=== PATIENT | male | born 1965 | race Caucasian/White ===

== ENCOUNTER 2022-07-18 19:50 | Emergency (ER) | payer SELFPAY ==
[~2022-07-18] VITALS: Ht 172.7 cm; Wt 81.8 kg
[2022-07-18 20:14] VITALS: BP 113/90
[2022-07-18] MEDS ORDERED: LISI-894 PO (20:21)
== END 2022-07-19 02:06 | disposition left against medical advice (07) ==
LOC: EMS 19:50
DX: R07.9 Chest pain, unspecified (principal); I10 Essential (primary) hypertension; F32.A Depression, unspecified; F17.210 Nicotine dependence, cigarettes, uncomplicated; F15.90 Other stimulant use, unspecified, uncomplicated
CPT/HCPCS: 93005; 99283